=== PATIENT | male | born 1975 | race Caucasian/White ===

== ENCOUNTER 2017-09-19 11:44 | Emergency (ER) | payer OTHER ==
[2017-09-19 12:42] LABS: BASOPHILS # (AUTO) 0.1 10^3/uL (0.0-0.1); BASOPHILS % (AUTO) 0.6 %; EOSINOPHILS # (AUTO) 0.1 10^3/uL (0.0-0.7); EOSINOPHILS % (AUTO) 0.5 %; HGB - HEMOGLOBIN 14.8 g/dL (14.0-18.0); LYMPHOCYTES # (AUTO) 2.4 10^3/uL (1.5-3.5); LYMPHOCYTES % (AUTO) 20.4 %; MEAN CORPUSCULAR HEMOGLOBIN 30.9 pg (27.0-31.0); MEAN CORPUSCULAR HGB CONC 34.8 g/dL (32.0-36.0); MEAN PLATELET VOLUME 8.9 fL (7.4-11.4); MONOCYTES # (AUTO) 0.8 10^3/uL (0.0-1.0); MONOCYTES % (AUTO) 6.5 %; NEUTROPHILS # (AUTO) 8.4 10^3/uL (1.5-6.6); PLT - PLATELET COUNT 234 10^3/uL (130-450); RED BLOOD COUNT 4.79 10^6/uL (4.70-6.10); RED CELL DISTRIBUTION WIDTH 12.9 % (12.0-15.0); WHITE BLOOD COUNT 11.6 x10^3/uL (4.8-10.8)
[2017-09-19] MEDS ORDERED: ASPIRIN CHEW 81 MG TABLET PO STA (12:43)
[2017-09-19 12:53] LABS: ALBUMIN 4.6 g/dL (3.2-5.5); ALBUMIN/GLOBULIN RATIO 1.4 (1.0-2.2); BILIRUBIN,TOTAL 0.9 mg/dL (0.2-1.0); CALCIUM 9.5 mg/dL (8.5-10.3); CREATININE 1.2 mg/dL (0.6-1.2); TOTAL PROTEIN 7.9 g/dL (6.7-8.2)
--- NOTE | 2017-09-19 12:55 | XRAY Preliminary Report ---
Exam: XR CHEST 2 VIEW X-RAY IMPRESSION: Normal 2-view chest radiography. [facility] SITE ID: [id number]
--- NOTE | 2017-09-19 12:55 | XRAY Report ---
EXAM: CHEST RADIOGRAPHY EXAM DATE: 09/19/2017 12:11 PM. CLINICAL HISTORY: Chest pain. COMPARISON: None. TECHNIQUE: 2 views. FINDINGS: Lungs/Pleura: No focal opacities evident. No pleural effusion. No pneumothorax. Normal volumes. Mediastinum: Heart and mediastinal contours are unremarkable. Other: None. IMPRESSION: Normal 2-view chest radiography. [facility] Referring Provider Line: [phone] SITE ID: [id number]
--- NOTE | 2017-09-19 13:01 | ED Physician Documentation ---
History of Present Illness - Stated complaint Stated Complaint: CP - Chief complaint Chief Complaint: General - History obtained from History obtained from: Patient - History of Present Illness Timing: How many hours ago (1) Pain level max: 5 Pain level now: 4 Improved by: nothing Worsened by: palpation - Additonal information Additional information: Patient is a 42 yo M with L sided chest pain today while running on a treadmill. Patient states that as a sharp pain on the left side of the chest, similar to his gastroesophageal reflux disease, but sharper. Does not have a history of cardiac disease. Had a normal cardiac stress test approximately 4 years ago. Does have a family history of heart disease. He does not smoke. Does have high cholesterol. He states that the pain is worse with movement and palpation. Nothing makes the pain better. The pain is still present, has been there consistently for approximately an hour now. It is getting better however. Review of Systems Ten Systems: 10 systems reviewed and negative Constitutional: denies: Fever, Chills Ears: denies: Ear pain Nose: denies: Rhinorrhea / runny nose, Congestion Throat: denies: Sore throat Cardiac: denies: Palpitations Respiratory: denies: Dyspnea, Cough, Hemoptysis, Wheezing GI: denies: Abdominal Pain, Nausea, Vomiting, Diarrhea Skin: denies: Rash Musculoskeletal: denies: Neck pain, Back pain Neurologic: denies: Focal weakness, Numbness, Headache PD PAST MEDICAL HISTORY - Past Medical History Past Medical History: Yes Cardiovascular: High cholesterol GI: GERD Psych: Post traumatic stress disorder - Past Surgical History Past Surgical History: Yes Ortho: Other - Present Medications Home Medications: Ambulatory Orders Medication Instructions Recorded Confirmed Omeprazole [PriLOSEC] 20 mg PO DAILY 09/19/17 09/19/17 - Allergies Allergies/Adverse Reactions: Allergies Allergy/AdvReac Type Severity Reaction Status Date / Time No Known Drug Allergies Allergy Verified 09/19/17 11:59 - Social History Does the pt smoke?: No Smoking Status: Never smoker Does the pt drink ETOH?: Yes Does the pt have substance abuse?: No - Immunizations Immunizations are current?: Yes PD ED PE NORMAL - Vitals Vital signs reviewed: Yes - General General: Alert and oriented X 3, No acute distress, Well developed/nourished - HEENT HEENT: PERRL, Moist mucous membranes - Neck Neck: Supple, no meningeal sign - Cardiac Cardiac: RRR, Strong equal pulses, Other (TTP over the L anterior chest wall, reproduces pain) - Respiratory Respiratory: No respiratory distress, Clear bilaterally - Abdomen Abdomen: Soft, Non tender, Non distended - Derm Derm: Warm and dry - Extremities Extremities: No edema, No calf tenderness / cord - Neuro Neuro: Alert and oriented X 3 - Psych Psych: Normal mood, Normal affect Results - Vitals Vitals: Vital Signs - 24 hr 09/19/17 09/19/17 09/19/17 11:57 12:39 13:35 Temperature 36.6 C Heart Rate 70 61 62 Respiratory 16 16 18 Rate Blood Pressure 103/78 124/81 H 113/88 H O2 Saturation 97 98 99 Oxygen O2 Source Room air - EKG (time done) 1154 Rate: Rate (enter#) (77) Rhythm: NSR [place]: Normal Intervals: Normal NM QRS: Normal Ischemia: Normal ST segments Computer interpretation: Agree with computer - Labs Labs: Laboratory Tests 09/19/17 09/19/17 09/19/17 12:28 12:28 12:28 WBC 11.6 H Corrected WBC Cancelled RBC 4.79 Hgb 14.8 Hct 42.6 MCV 89.0 MCH 30.9 MCHC 34.8 RDW 12.9 Plt Count 234 MPV 8.9 Neut # 8.4 H Lymph # 2.4 [place] # 0.8 Eos # 0.1 Baso # 0.1 Absolute Nucleated RBC 0.00 Total Counted Cancelled Neutrophils % (Manual) Cancelled Band Neuts % (Manual) Cancelled Lymphocytes % (Manual) Cancelled Reactive Lymphs % (Man) Cancelled Abnorm Lymph % (Manual) Cancelled Monocytes % (Manual) Cancelled Eosinophils % (Manual) Cancelled Basophils % (Manual) Cancelled Metamyelocytes % Cancelled Myelocytes % Cancelled Promyelocytes % Cancelled Blast Cells % Cancelled Plasma Cell % (Manual) Cancelled Other Cells % Cancelled Nucleated RBC % 0.0 Neutrophils # (Manual) Cancelled Lymphocytes # (Manual) Cancelled Monocytes # (Manual) Cancelled Eosinophils # (Manual) Cancelled Basophils # (Manual) Cancelled Nucleated RBCs Cancelled Differential Comment Cancelled Manual Slide Review Indicated WBC Morphology 1+ HYPERSEG NEUT Platelet Estimate NORMAL (130-450,000) Platelet Morphology NORMAL APPEARANCE RBC Morph Micro Appear NORMAL APPEARANCE Sodium 137 Potassium 3.8 Chloride 96 L Carbon Dioxide 28 Anion Gap 13.0 BUN 13 Creatinine 1.2 Estimated GFR (MDRD) 67 L Glucose 90 Calcium 9.5 Total Bilirubin 0.9 AST 21 ALT 32 Alkaline Phosphatase 58 Troponin I < 0.04 Total Protein 7.9 Albumin 4.6 Globulin 3.3 Albumin/Globulin Ratio 1.4 Lipase 23 09/19/17 13:21 WBC Corrected WBC RBC Hgb Hct MCV MCH MCHC RDW Plt Count MPV Neut # Lymph # [place] # Eos # Baso # Absolute Nucleated RBC Total Counted Neutrophils % (Manual) Band Neuts % (Manual) Lymphocytes % (Manual) Reactive Lymphs % (Man) Abnorm Lymph % (Manual) Monocytes % (Manual) Eosinophils % (Manual) Basophils % (Manual) Metamyelocytes % Myelocytes % Promyelocytes % Blast Cells % Plasma Cell % (Manual) Other Cells % Nucleated RBC % Neutrophils # (Manual) Lymphocytes # (Manual) Monocytes # (Manual) Eosinophils # (Manual) Basophils # (Manual) Nucleated RBCs Differential Comment Manual Slide Review WBC Morphology Platelet Estimate Platelet Morphology RBC Morph Micro Appear Sodium Potassium Chloride Carbon Dioxide Anion Gap BUN Creatinine Estimated GFR (MDRD) Glucose Calcium Total Bilirubin AST ALT Alkaline Phosphatase Troponin I < 0.04 Total Protein Albumin Globulin Albumin/Globulin Ratio Lipase - Rads (name of study) cxr Radiology: Prelim report reviewed, EMP read contemporaneously, See rad report ( normal) PD MEDICAL DECISION MAKING - ED course Complexity details: reviewed results, re-evaluated patient, considered differential (No ST elevation VT, no aortic dissection, no PE, no tension pneumothorax, no aortic aneurysm), d/w patient ED course: Patient is a 42-year-old male who presents to the emergency department with atypical chest pain. Normal EKG. Negative troponin. Given aspirin here. Troponin was repeated and found to be negative as well. We will have him follow -up with his doctor for further evaluation and care. Recommend a repeat cardiac stress test since his last was approximately 4 years ago. Patient counseled regarding signs and symptoms for which I believe and urgent re- evaluation would be necessary. Patient with good understanding of and agreement to plan and is comfortable going home at this time This document was made in part using voice recognition software. While efforts are made to proofread this document, sound alike and grammatical errors may occur. HEART score of 1 Departure - Departure Disposition: 01 Home, Self Care Clinical Impression: Chest pain Qualifiers: Chest pain type: unspecified Qualified Code(s): R07.9 - Chest pain, unspecified Condition: Good Instructions: ED Chest Pain Atypical Unkn Cause Follow-Up: Bc Hahn DO [Primary Care Provider] - Within 3 Days Comments: Start on a baby aspirin daily. Avoid any strenuous activity. Follow-up with your doctor within 3 days to schedule a cardiac stress test. Return if you worsen.
[2017-09-19 13:06] LABS: PLATELET ESTIMATE, MANUAL NORMAL (130-450,000) (NORMAL); PLATELET MORPHOLOGY NORMAL APPEARANCE (NORMAL); RBC MORPHOLOGY (MULTIPLE) NORMAL APPEARANCE (NORMAL)
[2017-09-19 14:59] VITALS: BP 112/79
== END 2017-09-19 15:02 | disposition home or self-care (01) ==
LOC: ED 11:44
DX: R07.9 Chest pain, unspecified (principal); E78.00 Pure hypercholesterolemia, unspecified; K21.9 Gastro-esophageal reflux disease without esophagitis; Z82.49 Family history of ischemic heart disease and other diseases of the circulatory system
CPT/HCPCS: 36415; 71046; 80053; 83690; 84484; 85025; 93005; 99284; 99285; A9270

== ENCOUNTER 2017-11-02 12:45 | Day surgery (SDC) | payer OTHER ==
[2017-11-02] MEDS ORDERED: LACTATED RINGERS 1,000 ML IV ONE (13:38)
[2017-11-02] MEDS ORDERED: MIDAZOLAM 2 MG/2 ML VIAL IVP ONE (14:30)
[2017-11-02] MEDS ORDERED: fentaNYL 250 MCG/5 ML VIAL IVP ONE (14:30)
[2017-11-02] MEDS ORDERED: LIDO GARGLE 30 ML BOTTLE ONE (14:33)
[2017-11-02 16:02] VITALS: BP 112/81
== END 2017-11-02 12:46 | disposition home or self-care (01) ==
LOC: SDS 12:45
PROVIDERS: ATTEND Surgery
PROC: 0DB68ZX Excision of Stomach, Via Natural or Artificial Opening Endoscopic, Diagnostic (ICD-10-PCS; 2017-11-02)
PROC: 0DB48ZX Excision of Esophagogastric Junction, Via Natural or Artificial Opening Endoscopic, Diagnostic (ICD-10-PCS; principal; 2017-11-02 14:15)
DX: K21.9 Gastro-esophageal reflux disease without esophagitis (principal); R07.9 Chest pain, unspecified; K29.70 Gastritis, unspecified, without bleeding; K44.9 Diaphragmatic hernia without obstruction or gangrene; E78.00 Pure hypercholesterolemia, unspecified; E03.9 Hypothyroidism, unspecified
CPT/HCPCS: 43239; 87081; A9270; J7120; 88305

== ENCOUNTER 2017-12-15 13:03 | Outpatient (CLI) | payer OTHER ==
[2017-12-15] MEDS ORDERED: SINCALIDE 5 MCG VIAL ONE (14:11)
[2017-12-15] MEDS ORDERED: SINCALIDE 1.7 MCG in SODIUM CHLORIDE 0.9% 50 ML IV ONE (15:42)
--- NOTE | 2017-12-16 10:16 | Nuclear Medicine Report ---
EXAM: HEPATOBILIARY SCAN WITH CCK/KINEVAC ADMINISTRATION EXAM DATE: 12/15/2017 03:46 PM. CLINICAL HISTORY: Postprandial epigastric pain. COMPARISON: None. TECHNIQUE: Following the intravenous administration of 4.9 mCi of Tc99m Mebrofenin, a hepatobiliary s can was done centered on the liver and gallbladder in multiple sequential images and projections. Following the intravenous administration of 1.71 mcg of CCK/ Kinevac over the course of approximately 60 minutes, dynamic imaging was done and the gallbladder ejection fraction was calculated. FINDINGS: Normal extraction of tracer from the blood pool indicating normal hepatocellular function. The liver size and shape is grossly within normal limits. Appearance of tracer in the biliary tree as early as 10 minutes, within normal limits. Appearance of tracer in the gallbladder as early as 10 minutes, within normal limits, with good progr ession of filling throughout the remainder of the initial hour. Appearance of tracer in the small bowel as early as 20 minutes, within normal limits. With CCK administration, the gallbladder demonstrates an effective contraction. The gallbladder eject ion fraction is calculated to be 98%, well above the lower limit of normal of 38% for a 60-minute inj ection. Mild pain, 3 out of 10 after administration of CCK. No evidence of enteric reflux into the stomach. No significant collection of tracer remaining in the common bile duct by the end of the study. IMPRESSION: 1. Normal uptake and excretion of activity by the liver. 2. Normal filling of the gallbladder and excretion into the bowel. 3. Normal gallbladder ejection fraction of 98%. [facility] Referring Provider Line: [phone] SITE ID: [id number]
== END 2017-12-15 13:04 | disposition home or self-care (01) ==
LOC: DI 13:03
PROVIDERS: ATTEND Surgery
DX: R10.13 Epigastric pain (principal)
CPT/HCPCS: 78227; A9537; J7040

== ENCOUNTER 2018-01-21 07:37 | Outpatient (CLI) | payer OTHER ==
--- NOTE | 2018-01-21 08:56 | Ultrasound Report ---
Procedure Date: 01/21/2018 Accession Number: [id number] / [id number] Procedure: US - Abdomen Limited CPT Code: FULL RESULT: EXAM: Abdomen Limited DATE: 01/21/2018 8:46 AM CLINICAL HISTORY: EPIGASTRIC PAIN POST PERIRDIAL COMPARISON: HIDA scan 12/15/2017 TECHNIQUE: Real-time scanning was performed with static images obtained. FINDINGS: The liver measures 17 cm. Hepatic echotexture is increased, compatible with fatty infiltration. No focal parenchymal lesion or intrahepatic biliary dilatation is present. The common bile duct measures 2 mm. The gallbladder is normal. Right kidney measures 11 cm, and demonstrates no hydronephrosis. No free fluid. IMPRESSION: Fatty infiltration of the liver. No evidence of cholelithiasis or biliary obstruction. [facility]
== END 2018-01-21 07:38 | disposition home or self-care (01) ==
LOC: DI 07:37
PROVIDERS: ATTEND Surgery
DX: R10.13 Epigastric pain (principal); K76.0 Fatty (change of) liver, not elsewhere classified
CPT/HCPCS: 76705

== ENCOUNTER 2022-05-05 09:43 | Outpatient (CLI) | payer OTHER ==
--- NOTE | 2022-05-05 18:18 | MRI Report ---
PROCEDURE: LUMBAR SPINE WO INDICATIONS: LOW BACK PAIN TECHNIQUE: Noncontrast sagittal T1 spin echo and T2 fast echo, sagittal STIR, axial T1 and T2 fast spin echo thr ough the lumbar spine. In cases with scoliosis, additional coronal T2 fast spin echo may be performe d. COMPARISON: None. FINDINGS: Image quality: Excellent. Alignment and Curvature: There is normal bony alignment. Bone Marrow: Marrow is of normal overall signal. No acute vertebral body compression fractures. Spinal Cord: Conus medullaris terminates at the L1-L2 level. Visualized cord demonstrates normal si gnal and size. Paraspinous Soft Tissues: No paravertebral masses. T12-L1: Normal in appearance. L1-L2: No significant abnormality is seen. L2-L3: Normal in appearance. L3-L4: Normal in appearance. L4-L5: Mild loss of disc height and disc signal are seen. Mild disc bulge is seen. Moderate f acet hypertrophy is seen. There is mild to moderate left-sided and moderate right-sided neuroforamina l narrowing. The central canal is widely patent. L5-S1: Moderate loss of disc height and signal are seen. Reactive marrow endplate changes are seen, which are on hypointense on T1-weighted and hyperintense T2-weighted imaging, with associated increased STIR signal. These imaging findings are most consistent with endplate edema (Modic type 1 change). Mild to moderate disc bulge is seen, with a central disc protrusion. Mild to moderate facet hypertrophy is seen. There is at least moderate facet in the interval narrowing, with a mild degree of compression upon the exiting left L5 nerve root. Moderate right-sided neuroforaminal narrowing is seen. Mild to moderate central canal narrowing is seen. IMPRESSION: Lower lumbar spine degenerative changes are seen, which are worst at the L5-S1 level. Reviewed by: Aaron Lawler MD on 05/05/2022 5:16 PM DB Approved by: Aaron Lawler MD on 05/05/2022 5:16 PM DB Station ID: [id number]
== END 2022-05-05 09:44 | disposition home or self-care (01) ==
LOC: DI 09:43
PROVIDERS: ATTEND Physician Assistant
DX: M51.17 Intervertebral disc disorders with radiculopathy, lumbosacral region (principal); M47.27 Other spondylosis with radiculopathy, lumbosacral region; M48.07 Spinal stenosis, lumbosacral region; M51.36 Other intervertebral disc degeneration, lumbar region; M48.061 Spinal stenosis, lumbar region without neurogenic claudication; M47.816 Spondylosis without myelopathy or radiculopathy, lumbar region